=== PATIENT | female | born 1955 | race Caucasian/White ===

== ENCOUNTER 2017-09-15 10:49 | Emergency (ER) | payer BC ==
[2017-09-15 10:49] VITALS: BP 131/77
[2017-09-15] MEDS ORDERED: TETANUS AND DIPHTHERIA TOX/PF 0.5 ML VIAL. VAX IM ONE (11:30)
[2017-09-15] MEDS ORDERED: DIPHTH,PERTUSS(ACELL),TET TOX 0.5 ML DISP.SYRIN. VAX IM ONE (11:45)
--- NOTE | 2017-09-15 12:01 | RAD ---
CT head without contrast. CT cervical spine without contrast. Technique: Noncontrast imaging of the head and cervical spine with multiplanar reconstructions was acquired. History: Fell today with headache, dizziness and neck pain. CT head findings: X-ray hardening artifact from the skull base through the brainstem may decrease sensitivity to detect subtle pathology at this location. No intracranial hemorrhage, mass, hydrocephalus, extra-axial fluid collections or infarction. No acute ischemic changes. Orbits, mastoids, paranasal sinuses and bones are unremarkable. Impression: No acute intracranial CT abnormality. CT cervical spine findings: Old right posterior second and third rib deformities. Craniocervical junction is intact. Cervical vertebral body height and alignment intact. 1 mm anterolisthesis of C7 associated with bilateral facet arthritis at C7-T1. No fracture of the cervical spine. Multilevel disc height loss, disc osteophytes and facet osteophytes and uncovertebral osteophytes with spinal canal and neural foraminal stenoses, likely severe at C5-C6 and C6-C7. Lung bases and paraspinal tissues are unremarkable. Impression: No acute osseous injury of the cervical spine. Cervical disc disease as described above.
--- NOTE | 2017-09-15 12:07 | RAD ---
Maxillofacial CT without contrast History: Facial pain, fell and hit front of the face Technique: Helical noncontrast CT imaging the facial bones with multiplanar reconstructions was acquired. Findings: There is a linear soft tissue density at the upper nose overlying the nasal bones which could be a foreign body or perhaps related to closure of a laceration at the skin. No fracture of the underlying nasal bones or maxillary nasal process. Nasal septum demonstrates mild chronic appearing rightward deviation. Paranasal sinuses are well aerated. Facial bones, maxilla, mandible and orbits are intact without a fracture. No orbital edema or hematoma. There is mild frontal scalp soft tissue swelling. Impression: Facial bones intact. Soft tissue swelling of the nose and frontal scalp. Linear density of the nasal soft tissues as described above.
--- NOTE | 2017-09-15 12:09 | RAD ---
Left knee x-rays 3 views History: Fall, left knee pain. Findings: No fracture, dislocation or arthritic change. Soft tissues are unremarkable. Impression: No acute osseous injury.
[2017-09-15] MEDS ORDERED: ACETAMINOPHEN 500 MG TABLET PO ONE (12:45)
[2017-09-15] MEDS ORDERED: ACET-704 PO (13:02)
--- NOTE | 2017-09-15 13:02 | PHYS DOC ---
Past History Past Medical History: Other Past Surgical History: Cholecystectomy, Hysterectomy, Other Alcohol Use: None Drug Use: None Adult General Chief Complaint Chief Complaint: MECHANICAL FALL HPI HPI 62-year-old female patient brought in by EMS because of a mechanical fall. Patient states she lost her balance and had a fall at the parking lot and landed on her face while she had the eyeglasses on without loss of consciousness. Patient had injury to left knee and face and states she had history of knee surgery and recommended to make sure she doesn't have problem with that area. She rated her pain moderate and denies nausea and vomiting, blurred vision, focal neuro deficit, fever and chills, chest pain and shortness of breath. Patient is not up-to-date with her tetanus immunization. Review of Systems Review of Systems Constitutional: Denies fever or chills [] Eyes: Denies change in visual acuity, redness, or eye pain [] HENT: Denies nasal congestion or sore throat [] Respiratory: Denies cough or shortness of breath [] Cardiovascular: No additional information not addressed in HPI [] GI: Denies abdominal pain, nausea, vomiting, bloody stools or diarrhea [] : Denies dysuria or hematuria [] Musculoskeletal: Denies back pain , reports joint pain [] Integument: Denies rash or skin lesions [] Neurologic: Denies headache, focal weakness or sensory changes [] Endocrine: Denies polyuria or polydipsia [] All other systems were reviewed and found to be within normal limits, except as documented in this note. Current Medications Current Medications Current Medications Medications (Trade) Dose Ordered Sig/[facility] Start Time Stop Time Status Last Admin Dose Admin Acetaminophen (Tylenol) 1,000 mg 1X ONCE 09/15/17 12:45 09/15/17 12:46 DC 09/15/17 12:35 1,000 MG Diphtheria/ Tetanus/Acell Pertussis (Boostrix) 0.5 ml ONCE ONCE 09/15/17 11:45 09/15/17 11:46 DC 09/15/17 12:14 0.5 ML Tetanus/ Diphtheria Toxoids Adsorbed (Tenivac Vial) 0.5 ml ONCE ONCE 09/15/17 11:30 09/15/17 11:30 DC Allergies Allergies Allergies Coded Allergies Type Severity Reaction Last Updated Verified No Known Drug Allergies 09/15/17 No Physical Exam Physical Exam Constitutional: Well developed, well nourished, mild distress, non-toxic appearance. [] HENT: Normocephalic, forehead 5 x 5 cm contusion and abrasion, flap laceration of base of nose with contusion of nose, bilateral external ears normal, oropharynx moist, no oral exudates. Eyes: PERRLA, EOMI, conjunctiva normal, no discharge. [] Neck: Normal range of motion, no tenderness, supple, no stridor. [] Cardiovascular:Heart rate regular rhythm, no murmur [] Lungs & Thorax: Bilateral breath sounds clear to auscultation [] Abdomen: Bowel sounds normal, soft, no tenderness, no masses, no pulsatile masses. [] Skin: Warm, dry, no erythema, no rash. [] Back: No tenderness, no CVA tenderness. [] Extremities: Left knee feet no deformity or edema, mild contusion without abrasion Neurologic: Alert and oriented X 3, normal motor function, normal sensory function, no focal deficits noted. [] Psychologic: Affect normal, judgement normal, mood normal. [] Current Patient Data Vital Signs Vital Signs Date Time Temp Pulse Resp B/P (MAP) Pulse Ox O2 Delivery O2 Flow Rate FiO2 09/15/17 10:49 98.0 71 16 96 Room Air EKG EKG [] Radiology/Procedures Radiology/Procedures [] [address] [id number] IMAGING REPORT Signed PATIENT: KAHLIL CLINE ACCOUNT: [id number] : 1955 LOCATION: ER AGE: 62 SEX: F EXAM STATUS: PRE ER ORD. PHYSICIAN: CHRIS LINK MD REASON: fall PROCEDURE: CT HEAD AND CERVICAL SPINE WO CT head without contrast. CT cervical spine without contrast. Technique: Noncontrast imaging of the head and cervical spine with multiplanar reconstructions was acquired. History: Fell today with headache, dizziness and neck pain. CT head findings: X-ray hardening artifact from the skull base through the brainstem may decrease sensitivity to detect subtle pathology at this location. No intracranial hemorrhage, mass, hydrocephalus, extra-axial fluid collections or infarction. No acute ischemic changes. Orbits, mastoids, paranasal sinuses and bones are unremarkable. Impression: No acute intracranial CT abnormality. CT cervical spine findings: Old right posterior second and third rib deformities. Craniocervical junction is intact. Cervical vertebral body height and alignment intact. 1 mm anterolisthesis of C7 associated with bilateral facet arthritis at C7-T1. No fracture of the cervical spine. Multilevel disc height loss, disc osteophytes and facet osteophytes and uncovertebral osteophytes with spinal canal and neural foraminal stenoses, likely severe at C5-C6 and C6-C7. Lung bases and paraspinal tissues are unremarkable. Impression: No acute osseous injury of the cervical spine. Cervical disc disease as described above. DICTATED AND SIGNED BY: STEPHANI OLIVAS MD DATE: 09/15/17 1150 CC: CHRIS LINK MD ~ [address] [address] IMAGING REPORT Signed PATIENT: KAHLIL CLINE ACCOUNT: [id number] : 1955 LOCATION: ER AGE: 62 SEX: F EXAM STATUS: PRE ER ORD. PHYSICIAN: CHRIS LINK MD REASON: fall, previous surgery on knee PROCEDURE: KNEE LEFT 3V Left knee x-rays 3 views History: Fall, left knee pain. Findings: No fracture, dislocation or arthritic change. Soft tissues are unremarkable. Impression: No acute osseous injury. DICTATED AND SIGNED BY: STEPHANI OLIVAS MD DATE: 09/15/17 1205 CC: CHRIS LINK MD ~ [address] [address] IMAGING REPORT Signed PATIENT: KAHLIL CLINE ACCOUNT: [id number] : 1955 LOCATION: ER AGE: 62 SEX: F EXAM STATUS: PRE ER ORD. PHYSICIAN: CHRIS LINK MD REASON: fall PROCEDURE: CT MAXILLOFACIAL WO CONTRAST Maxillofacial CT without contrast History: Facial pain, fell and hit front of the face Technique: Helical noncontrast CT imaging the facial bones with multiplanar reconstructions was acquired. Findings: There is a linear soft tissue density at the upper nose overlying the nasal bones which could be a foreign body or perhaps related to closure of a laceration at the skin. No fracture of the underlying nasal bones or maxillary nasal process. Nasal septum demonstrates mild chronic appearing rightward deviation. Paranasal sinuses are well aerated. Facial bones, maxilla, mandible and orbits are intact without a fracture. No orbital edema or hematoma. There is mild frontal scalp soft tissue swelling. Impression: Facial bones intact. Soft tissue swelling of the nose and frontal scalp. Linear density of the nasal soft tissues as described above. DICTATED AND SIGNED BY: STEPHANI OLIVAS MD DATE: 09/15/17 1202 CC: CHRIS LINK MD ~ Course & Med Decision Making Course & Med Decision Making Pertinent Imaging studies reviewed. (See chart for details) discharge: I've spoken with the patient and/or caregivers. I've explained the patient's condition, diagnosis and treatment plan based on information available to me at this time. I've answered the patient's and/or caregivers questions and addressed any concerns. The patient and/or caregivers have a good understanding the patient's diagnosis, condition and treatment plan as can be expected at this point. Vital signs have been stabilized. The patient's condition is stable for discharge from the emergency department. The patient will pursue further outpatient evaluation with her primary care provider or other designated consulting physician as outlined in the discharge instructions. Patient and/or caregivers are agreeable to this plan of care and follow-up instructions have been explained in detail. The patient and/or caregivers have received these instructions in written format and expressed understanding of these discharge instructions. The patient and her caregivers are aware that if any significant change in condition or worsening of symptoms should prompt him to immediately return to this of the closest emergency department. If an emergent department is not readily available I would encourage him to call 911. [] Dragon Disclaimer Dragon Disclaimer This electronic medical record was generated, in whole or in part, using a voice recognition dictation system. Laceration Repair Lac Repair Indication: [Facial laceration] Procedure: The patient was placed in the appropriate position and 1 cm superficial flap lacerationwas repaired with Dermabond and Steri-Strip. Total repaired wound length: [1 cm]. Other Items: [OTHER ITEMS] The patient tolerated the procedure [well]. Complications: [none]. Departure Departure: Impression: Primary Impression: Facial contusion Additional Impressions: Facial laceration Contusion of left knee Fall Disposition: HOME, SELF-CARE (At 1301) Condition: IMPROVED Patient Instructions: Contusion, Tissue Adhesive Wound Care Additional Instructions: Drink plenty of liquids Follow-up with your primary care physician in 3-5 days Return to ER if not getting better Scripts Acetaminophen With Codeine (TYLENOL WITH CODEINE #3 TABLET) 1 Each Tablet 1 TAB PO Q6HRS, #15 TAB Prov: CHRIS LINK MD 09/15/17 Problem Qualifiers CHRIS LINK MD Sep 15, 2017 13:02
== END 2017-09-15 13:08 | disposition home or self-care (01) ==
LOC: ER 10:49
DX: S01.21XA Laceration without foreign body of nose, initial encounter (principal); S00.83XA Contusion of other part of head, initial encounter; S80.02XA Contusion of left knee, initial encounter; W01.0XXA Fall on same level from slipping, tripping and stumbling without subsequent striking against object, initial encounter; Y93.89 Activity, other specified; Y99.8 Other external cause status; Y92.481 Parking lot as the place of occurrence of the external cause
CPT/HCPCS: 12011; 70450; 70486; 72125; 73562; 90471; 90715; 99284-25